=== PATIENT | female | born 1995 | race African-American/Black ===

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

== ENCOUNTER 2017-10-12 16:18 | Emergency (ER) | payer OTHER ==
[~2017-10-12] VITALS: Ht 162.6 cm; Wt 62.1 kg
[~2017-10-12 16:18] MED LIST: HAIR, SKIN & N1 EACH PO; VALTREX1000 MG PO
--- NOTE | 2017-10-12 17:08 | ED GI/GU/ABDOMINAL COMPLAINT ---
History of Present Illness General Chief Complaint: Female Urogenital Problems Stated Complaint: URINATING BLOOD/PELVIC PAIN Source: patient Exam Limitations: no limitations Vital Signs & Intake/Output Vital Signs & Intake/Output Vital Signs Date Time Temp Pulse Resp B/P B/P Pulse O2 O2 Flow FiO2 Mean Ox Delivery Rate 10/12 1836 98.0 94 16 128/79 99 Room Air 10/12 1712 Room Air 10/12 1622 98.1 96 20 133/78 98 Room Air Allergies Coded Allergies: NO KNOWN ALLERGIES (03/07/16) Reconcile Medications Cephalexin (Keflex) 500 MG CAPSULE 1 CAP PO BID uti Multivitamin With Minerals (Hair, Skin & Nails) 1 EACH TABLET 1 TAB PO DAILY SUPPLEMENT (Reported) Phenazopyridine HCl (Pyridium) 100 MG TABLET 1 TAB PO TID uti Triage Note: PT TO ED C/O URINARY FREQUENCY, URGENCY AND LOWER ABD CRAMPING SINCE YESTERDAY, WORSE TODAY. LMP LAST WEEKEND. Triage Nurses Notes Reviewed? yes ? n Is pt currently ? No Onset: Gradual Duration: day(s): Timing: recent history Quality/Severity: burning, cramping Location: suprapubic, urethral HPI: 22yo female presents to ED complaining of dysuria, hematuria, urinary frequency, and suprapubic pain x 2 days. Patient states that she noticed blood on toilet paper when she wiped. Patient reports her symptoms have been gradually worsening since onset. Suprapubic pain is described as cramping. Patient denies fevers, chills, back pain, diarrhea, change in vaginal discharge. She is sexually active, states she had STD testing at her [employer]'s office recently. (Fatimah Galarza) Past History Travel History Traveled to [place] past 21 day No Medical History Any Pertinent Medical History? see below for history Psychiatric: anxiety, depression Surgical History Surgical History: none Psychosocial History What is your primary language Monegasque Tobacco Use: Never used ETOH Use: denies use Illicit Drug Use: denies illicit drug use Family History Hx Contributory? No (Fatimah Galarza) Review of Systems Review of Systems Constitutional: Reports: no symptoms. EENTM: Reports: no symptoms. Respiratory: Reports: no symptoms. Cardiovascular: Reports: no symptoms. GI: Reports: see HPI. Genitourinary: Reports: see HPI. Musculoskeletal: Reports: no symptoms. Skin: Reports: no symptoms. Neurological/Psychological: Reports: no symptoms. Hematologic/Endocrine: Reports: no symptoms. Immunologic/Allergic: Reports: no symptoms. All Other Systems: Reviewed and Negative (Sheryl HARDY,Fatimah Rangel) Physical Exam Physical Exam General Appearance: well developed/nourished, no apparent distress, alert, awake Head: atraumatic, normal appearance Eyes: Bilateral: normal appearance. Ears, Nose, Throat, Mouth: hearing grossly normal Neck: normal inspection, supple, full range of motion Respiratory: normal breath sounds, no respiratory distress, lungs clear Cardiovascular: regular rate/rhythm Gastrointestinal: normal bowel sounds, soft, no organomegaly, suprapubic tenderness Back: normal inspection, normal range of motion, no CVA tenderness Extremities: normal range of motion Neurologic/Psych: awake, alert, oriented x 3 Skin: intact, normal color, warm/dry Core Measures ACS in differential dx? No Sepsis Present: No Sepsis Focused Exam Completed? No (Fatimah Galarza) Progress Differential Diagnosis: intrauterine , kidney stone, PID/cervicitis, UTI/pyelo Plan of Care: Orders Procedure Date/time Status CHLAMYDIA-GC DNA PROBE 10/13 1655 Active URINE 10/12 1622 Complete URINALYSIS 10/12 1622 Complete Laboratory Tests 10/12/171655: Urinalysis LIGHT H, Urine Color YEL, Urine Clarity CLDY H, Urine pH 7.0, Ur Specific [place] 1.025, Urine Protein 100 H, Urine Ketones NEG, Urine Nitrite POS H, Urine Bilirubin NEG, Urine Urobilinogen 1.0, Ur Leukocyte Esterase LARGE H, Ur Microscopic SEDIMENT EXAMINED, Urine RBC 25-50 H, Urine WBC > 75 H, Ur Epithelial Cells FEW, Urine Bacteria MANY H, Urine Mucus FEW, Urine Hemoglobin MOD H, Urine Glucose NEG, Urine Test NEGATIVE Microbiology 10/13 1655 URINE ROUT: GC DNA Probe - RECD 10/13 1655 URINE ROUT: Chlamydia DNA Probe (JACINTO) - RECD 10/12 1622 URINE ROUT: GC DNA Probe - CAN Cancelled: UPDATED TO REFLECT SPECIMEN COLLECTED FOR PROBE 10/12 1622 URINE ROUT: Chlamydia DNA Probe (JACINTO) - CAN Cancelled: UPDATED TO REFLECT SPECIMEN COLLECTED FOR PROBE Patient's urine shows evidence of UTI. Patient has no CVA tenderness, she is afebrile, low suspicion for pyelonephritis. Patient treated with antibiotics for her urine infection. Culture is pending. Patient is nontoxic appearing, no acute distress. The patient agrees with the plan of care. Initial ED EKG: none (Fatimah Galarza) Departure Departure Disposition: HOME OR SELF CARE Condition: Stable Clinical Impression Primary Impression: UTI (urinary tract infection) Qualifiers: Urinary tract infection type: acute cystitis Hematuria presence: with hematuria Qualified Code: N30.01 - Acute cystitis with hematuria Referrals: Patient Has No Primary Care Dr (PCP/Family) Additional Instructions: Take full course of antibiotics. Take pyridium for your urinary pain. This may make your urine turn orange. Follow up with [facility]. Return with worsening symptoms or concerns. Please note that there might be incidental findings in your evaluation that are unrelated to the current emergency department visit. Please notify your primary care doctor about this emergency department visit in order to obtain and review all of the testing performed so that these incidental findings can be monitored as needed. If you had an x-ray performed, please understand that some fractures may not be seen on the initial set of x-rays. If your symptoms persist you might need a repeat set of x-rays to check for such a fracture. If you had a laceration evaluated, please understand that foreign bodies such as glass or wood may not be visible to the naked eye or on plain x-rays. If the wound becomes red, swollen, increasingly more painful or if there is any drainage from the wound, please have it reevaluated by a physician for the possibility of a retained foreign body. If you're unable to follow up as outlined in the discharge instructions please return to the emergency department. Thank you for choosing the [facility] Emergency Department for your care. It was a pleasure to serve you today. Departure Forms: Customer Survey General Discharge Information Prescriptions: Current Visit Scripts Cephalexin (Keflex) 1 CAP PO BID #14 CAP Phenazopyridine HCl (Pyridium) 1 TAB PO TID #6 TAB (Fatimah Galarza) PA/PYROMETER MECHANIC Co-Sign Statement Statement: ED Attending supervision documentation- [] I saw and evaluated the patient. I have also reviewed all the pertinent lab results and diagnostic results. I agree with the findings and the plan of care as documented in the PA's/PYROMETER MECHANIC's documentation. [X] I have reviewed the ED Record and agree with the PA's/PYROMETER MECHANIC's documentation. [] Additions or exceptions (if any) to the PAs/PYROMETER MECHANIC's note and plan are summarized below: [] (Magdaleno Knapp DO)
[2017-10-12] MEDS ORDERED: KEFLEX500 M1 PO (17:58)
[2017-10-12] MEDS ORDERED: PYRIDIUM100 M1 PO (17:58)
[2017-10-12 18:36] VITALS: BP 128/79
== END 2017-10-12 18:37 ==
LOC: ERH 16:18
DX: N39.0 Urinary tract infection, site not specified (principal)
CPT/HCPCS: 81001; 81025; 87491; 87591